=== PATIENT | female | born 1945 | race Caucasian/White ===

== ENCOUNTER 2017-10-12 17:56 | Emergency (ER) | payer OTHER ==
[2017-10-12 18:06] VITALS: RESP 18; TEMP 97.8
[2017-10-12] MEDS ORDERED: KETOROLAC TROMETHAMINE 30 MG/ML SOL IM ONE (18:19)
[2017-10-12] MEDS ORDERED: KETOROLAC TROMETHAMINE 30 MG/ML SOL ONE (18:31)
[2017-10-12 19:25] VITALS: BP 126/78; PULSE 90; O2SAT 93
== END 2017-10-12 18:20 | disposition home or self-care (01) | DRG 605 ==
LOC: ED 17:56
DX: S80.02XA Contusion of left knee, initial encounter (principal); W19.XXXA Unspecified fall, initial encounter; I10 Essential (primary) hypertension; E11.9 Type 2 diabetes mellitus without complications; M25.562 Pain in left knee
CPT/HCPCS: 73562; 96372; 99283; J1885; L1830

== ENCOUNTER 2017-10-13 09:37 | Outpatient (CLI) | payer OTHER ==
[2017-10-12 19:25] VITALS: O2SAT 93
== END 2017-10-13 09:38 | disposition home or self-care (01) | DRG 563 ==
LOC: CONVCARE 09:37
PROVIDERS: ATTEND Orthopaedic Surgery
DX: S82.155A Nondisplaced fracture of left tibial tuberosity, initial encounter for closed fracture (principal); W19.XXXA Unspecified fall, initial encounter
CPT/HCPCS: 73700

== ENCOUNTER 2017-10-27 15:24 | Outpatient (CLI) | payer OTHER ==
[2017-10-12 19:25] VITALS: O2SAT 93
== END 2017-10-27 15:25 | disposition home or self-care (01) | DRG 561 ==
LOC: CONVCARE 15:24
PROVIDERS: ATTEND Orthopaedic Surgery
DX: S82.155D Nondisplaced fracture of left tibial tuberosity, subsequent encounter for closed fracture with routine healing (principal); Z47.89 Encounter for other orthopedic aftercare
CPT/HCPCS: 73564

== ENCOUNTER 2017-12-01 13:29 | Outpatient (CLI) | payer OTHER ==
[2017-10-12 19:25] VITALS: O2SAT 93
== END 2017-12-01 13:30 | disposition home or self-care (01) | DRG 561 ==
LOC: CONVCARE 13:29
PROVIDERS: ATTEND Orthopaedic Surgery
DX: S82.155D Nondisplaced fracture of left tibial tuberosity, subsequent encounter for closed fracture with routine healing (principal)
CPT/HCPCS: 73564